=== PATIENT | female | born 1965 ===

== ENCOUNTER → 2023-02-01 14:15 | Outpatient (CLI) | payer OTHER, BC, SELFPAY ==
--- NOTE | ~2023-02-01 | CT_ITS ---
EXAMINATION: CT abdomen pelvis w con DATE: 02/01/2023 14:42 INDICATION: Right upper quadrant abdominal pain for one month. TECHNIQUE: Computed tomography (CT) of the abdomen and pelvis was performed with 100 CC Omnipaque 350 intravenous contrast. Automated exposure control and iterative reconstruction technique were employe d. Exam dose: 1062.47 mGy-cm total exam DLP. COMPARISON: None. FINDINGS: Minimal atelectasis at the lung bases. Normal heart size. No pericardial or pleural effusio n. The gallbladder wall is nonspecific and. No pericholecystic fluid collection is noted. No bile duct o r pancreatic duct dilatation or pancreatic calcification. There is diffuse hepatic steatosis. No hepatic, splenic, pancreatic, adrenal or suspicious renal spac e-occupying mass lesion is detected. Normal caliber of the abdominal aorta. No intraperitoneal or retroperitoneal or pelvic mass lesion or adenopathy or ascites. Status post bilateral tubal ligation. The uterus, adnexal areas and urinary bladder are otherwise unremarkable. Normal appendix. No bowel obstruction, bowel wall thickening, pneumatosis or intraperitoneal free air Small fat-containing umbilical hernia. There is mild anterior wedging and loss of height of T7-T10, likely chronic. There is degenerative sp urring of the lower thoracic spine. There is moderately severe degenerative disc disease at L5-S1. Prominent degenerative change of the l umbar apophyseal joints. No suspicious osteolytic or osteoblastic lesions are noted. IMPRESSION: Hepatic steatosis Normal appendix The patient reportedly indicated she has gallbladder issues; gallbladder ultrasound would be more sen sitive than CT examination for detection of cholelithiasis. Reviewed, dictated and finalized at [facility]. Reviewed, dictated and finalized at [facility]. IMPRESSION: Hepatic steatosis Normal appendix The patient reportedly indicated she has gallbladder issues; gallbladder ultras ound would be more sensitive than CT examination for detection of cholelithiasi s.
== END ==
PROVIDERS: PCP Family Medicine; Visit Provider Family Medicine
DX: R10.11 Right upper quadrant pain (principal); K76.0 Fatty (change of) liver, not elsewhere classified
CPT/HCPCS: 74177; Q9967